=== PATIENT | male | born 2005 | race Caucasian/White ===

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

== ENCOUNTER 2025-04-22 22:07 | Emergency (ER) | payer BC, SELFPAY ==
--- NOTE | ~2025-04-22 | XR_ITS ---
XR knee LT min 4V INDICATION: TWIST 2 WEEKS AGO/ALL OVER PAIN . COMPARISON: None. FINDINGS: Frontal, lateral and oblique views of the left knee demonstrate no acute fracture or dislocation. There is no joint effusion. IMPRESSION: Radiographic examination of the left knee demonstrates no acute fracture or dislocation. Reviewed, dictated and finalized at location S. MANAGER IMPRESSION: Radiographic examination of the left knee demonstrates no acute fracture or dis location.
[2025-04-22 22:10] VITALS: BP 158/85; PULSE 86; RESP 18; TEMP 36.1; O2SAT 100
--- NOTE | 2025-04-22 22:20 | ED_ITS ---
HPI - Extremity Injury (Lower) General Chief Complaint: Extremity Injury, Lower Stated Complaint: knee pain Time Seen by Provider: 04/22/25 22:13 Source: patient Mode of arrival: ambulatory Limitations: no limitations History of Present Illness HPI Narrative: 19 YEARS OLD WHITE MALE, HISTORY OF CHRONIC LEFT KNEE PAIN FOR THE LAST 2 YEARS, GOT WORSE TODAY AFTER SLIGHT TWIST AT WORK.. PATIENT DENIES OTHER INJURIES. WORSE WITH FLEXION AND TWIST. HE DENIES ANY FEVER, CHILLS, NAUSEA, VOMITING. Related Data Home Medications ?Medication ?Instructions ?Recorded ?Confirmed ?Last Taken ?Type No Home Medications 08/29/20 03/31/23 U nknown History Allergies Allergy/AdvReac Type Severity Reaction Status Date / Time No Known Allergies Allergy Verified 03/31/23 13:16 Review of Systems Review of Systems: All systems reviewed & are unremarkable except as noted in HPI and below PMF[facility] Past Medical History Medical History No significant medical problems Surgical History Surgical History No significant past surgical history Family History Family History Mother Patient denies significant medical history Social History Social History Social History: lives with mother Smoking status: Never smoker Exam Narrative: GENERAL APPEARANCE: WELL-DEVELOPED, WELL-NOURISHED SKIN: NORMAL COLOR HEAD: NORMOCEPHALIC, NONTRAUMATIC EYES: CLEAR CONJUNCTIVA ENT: OROPHARYNX NORMAL, EARS NORMAL, NOSE NORMAL NECK: SUPPLE, NONTENDER CHEST AND RESPIRATORY: AIRWAY PATENT, NO RESPIRATORY DISTRESS, NO ACCESSORY MUSCLE USE HEART: REGULAR RATE/RHYTHM ABDOMEN: SOFT, NONTENDER, NO ORGANOMEGALY, QUIET BOWEL SOUNDS VASCULAR: NORMAL PERIPHERAL PULSES, NORMAL CAPILLARY REFILL. MUSCULOSKELETAL: LEFT KNEE EXAM SHOWED NO DEFORMITY, NO SWELLING, NO BRUISES, LIMITED RANGE OF MOTION MAINLY FLEXION. NEUROLOGIC: ALERT AND ORIENTED ?3, DELINQUENT TAX COLLECTION ASSISTANT IS NORMAL TESTED, NO GROSS MOTOR DEFICIT Course Vital Signs Vital signs: Vital Signs Temperature 36.1 C L 04/22/25 22:10 Pulse Rate 86 04/22/25 22:10 Respiratory Rate 18 04/22/25 22:10 Blood Pressure 158/85 H 04/22/25 22:10 Pulse Oximetry 100 04/22/25 22:10 Oxygen Delivery Room Air 04/22/25 22:10 Temperature 36.1 C L 04/22/25 22:10 Pulse Rate 86 04/22/25 22:10 Respiratory Rate 18 04/22/25 22:10 Blood Pressure 158/85 H 04/22/25 22:10 Pulse Oximetry 100 04/22/25 22:10 Oxygen Delivery Room Air 04/22/25 22:10 MDM - Extremity Injury (Lower) MDM Narrative Medical decision making narrative: CHRONIC LEFT KNEE PAIN, GOT WORSE TODAY AFTER TWIST X-RAY OF THE LEFT KNEE SHOWED NO ACUTE ABNORMALITIES Differential Diagnosis Differential diagnosis: Likely other ( ABOVE) Imaging Data Radiologist's impression: X-RAY LEFT KNEE SHOWED NO ACUTE OSSEOUS ABNORMALITY, NO EFFUSION Critical Care Time Critical Care Time Critical Care Time: No Discharge Plan Discharge Clinical Impression: Knee pain, right Patient Disposition: Home Condition: Stable Instructions: Knee Sprain (ED) Additional Instructions: RETURN IF SYMPTOMS ARE WORSENING , CALL ORTHOPEDIC FOR APPOINTMENT, TAKE TYLENOL, IBUPROFEN NEEDED FOR ACHES AND PAIN, CONTINUE HOME MEDICATIONS. Patient Language: [place]se Prescriptions: No Action No Home Medications Follow-up/Referrals: Tomy Walters MD [Physician, Orthopedics] - 04/26/25 Sanjana Cardenas APRN [Primary Care Provider, Family Practice] Stand Alone Forms: Work/School Release IP
[2025-04-22] MEDS: ACETAMINOPHEN 325 MG TABLET 650 MG PO (22:52)
[2025-04-22] MEDS: IBUPROFEN 600 MG TABLET PO (22:52)
[2025-04-22 23:10] VITALS: BP 138/72; PULSE 85; RESP 18; O2SAT 98
== END 2025-04-22 23:10 | disposition home or self-care (01) ==
PROVIDERS: Emergency Provider Emergency Medicine; PCP Nurse Practitioner Family
DX: M25.562 Pain in left knee (principal)
CPT/HCPCS: 73564; 99283; A9270; L1830